=== PATIENT | female | born 1945 | race Caucasian/White ===

== ENCOUNTER 2019-02-27 17:25 | Observation (INO) ==
[2019-02-27] MEDS ORDERED: 0.9 % SODIUM CHLORIDE 1,000 ML IV ONE ×2 (17:27→17:55)
--- NOTE | 2019-02-27 17:35 | Emergency Department Note ---
Altered Mental Status HPI - General Chief Complaint: Altered Mental Status Stated Complaint: heat stroke Time Seen by Provider: 02/27/19 17:27 Source: patient Mode of arrival: ambulatory Limitations: no limitations - History of Present Illness HPI Narrative: 74-year-old female was found in her car unconscious with the windows rolled up. Her temperature was 106. EMS brought her in. She has no memory of what happened. She was stuporous and barely coherent on first exam After fluid resuscitation she was more awake alert and can answer questions but she could give me no additional information - Related Data Previous Rx's Medication Instructions Recorded cholecalciferol (vitamin D3) 50,000 unit PO .COMPLEX #24 cap 02/15/17 50,000 unit capsule metoprolol tartrate 25 mg tablet 25 mg PO BID #60 tab 09/02/17 amlodipine 10 mg tablet 10 mg PO QDAY #90 tab 01/05/19 bupropion HCl XL 150 mg 24 hr 450 mg PO QDAY #270 tab 01/05/19 tablet, extended release furosemide 20 mg tablet 10 mg PO QAM PRN #30 tab 01/05/19 lisinopril 20 1 tab PO QDAY #90 tab 01/05/19 mg-hydrochlorothiazide 25 mg tablet simvastatin 20 mg tablet 20 mg PO QPM #90 tab 01/05/19 venlafaxine ER 150 mg 150 mg PO BID #180 cap 01/05/19 capsule,extended release 24 hr Allergies Allergy/AdvReac Type Severity Reaction Status Date / Time venom-honey bee Allergy Unknown Swelling Verified 01/05/19 13:33 [bee venom (honey bee)] Review of Systems Limitations: ROS unobtainable due to patients medical condition Past Medical History - Past Medical History Source: unable to obtain Medical history: Reports: arthritis, hyperlipidemia, hypertension, other (mitral valve prolapse, cervical DDD) Psychiatric history: Reports: anxiety, depression Surgical history ED: Reports: hysterectomy - Social History smoking status: Former smoker Alcohol use: Reports: Rarely Drug use: Reports: none Physical Exam No acute distress resting. Thin. Normocephalic atraumatic. Conjunctive are clear sclerae white and anicteric. No nasal discharge or congestion. Oropharynx with dry buccal mucosa. Neck is supple without lymphadenopathy or thyromegaly. Heart is regular rate and rhythm no murmur appreciated. Lungs are clear to auscultation bilaterally without wheezes rales rhonchi or respiratory distress. Abdomen is soft nontender nondistended. No pedal edema. +2 radial pulse. Alert after fluid resuscitation but denies any memory of events preceding Limitations: no limitations Course Vital Signs Temperature 103.5 F H 02/27/19 17:25 Respiratory Rate 16 02/27/19 17:25 Blood Pressure 136/63 02/27/19 17:25 Pulse Oximetry (%) 90 02/27/19 17:25 Temperature 98.0 F 02/27/19 19:09 Pulse Rate 99 H 02/27/19 19:09 Respiratory Rate 10 L 02/27/19 19:09 Blood Pressure 106/57 02/27/19 19:01 Pulse Oximetry (%) 100 02/27/19 19:09 Altered Mental Status - Lab Data Lab results reviewed: Yes I reviewed the patient's lab results. Result diagrams: 02/27/19 17:40 02/27/19 17:40 Lab Results 02/27/19 02/27/19 02/27/19 Range/Units 17:40 17:40 17:40 WBC 6.0 (4.5-11.0) K/mcL RBC 3.55 L (4.00-5.20) M/mcL Hgb 10.7 L (12.0-15.0) g/dL Hct 32.4 L (36.0-48.0) % POC Hct 30.0 L (36.0-48.0) % MCV 91.3 (80.0-100.0) fL MCH 30.2 (26.0-34.0) pg MCHC 33.1 (31.0-36.0) g/dL RDW 13.3 (11.5-14.5) % Plt Count 281 (140-440) K/mcL MPV 8.6 (7.4-10.4) fL Gran % 71.9 (38.0-78.0) % Lymph % (Auto) 18.9 (15.5-49.0) % [place] % (Auto) 8.2 (1.0-12.0) % Eos % (Auto) 0 (0.0-7.0) % Baso % (Auto) 1.0 (0.0-2.0) % Gran # 4.3 (1.8-8.0) K/mcL Lymph # (Auto) 1.1 L (1.5-4.8) K/mcL [place] # (Auto) 0.5 (0.1-0.9) K/mcL Eos # (Auto) 0 (0.0-0.7) K/mcL Baso # (Auto) 0.1 (0.0-0.3) K/mcL POC Sodium 140 (133-145) mmol/L Sodium 140 (133-145) mmol/L POC Potassium 3.4 (3.3-5.1) mmol/L Potassium 3.6 (3.3-5.1) mmol/L POC Chloride 106 (96-108) mmol/L Chloride 103 (96-108) mmol/L Carbon Dioxide 24 (22-30) mmol/L POC Total CO2 25 (22-30) mmol/L Anion Gap 13.0 (8-16) POC BUN 19 (8-23) mg/dl BUN 17 (8-23) mg/dl Creatinine 1.4 H (0.6-1.1) mg/dl POC Creatinine 1.5 H (0.6-1.1) mg/dl GFR Calculation 37 Glucose 113 H (70-105) mg/dL POC Glucose 111 H (70-105) mg/dL Calcium 8.7 (8.6-10.4) mg/dl POC WB Ioniz Calcium 1.09 L (1.16-1.32) mmol/L Phosphorus 1.7 L (2.7-4.5) mg/dL Magnesium 1.8 (1.6-2.5) mg/dL Total Bilirubin 0.3 (0.0-1.0) mg/dL AST 29 (0-37) U/l ALT 21 (0-40) U/l Alkaline Phosphatase 63 (39-117) U/L Total Creatine Kinase 140 (24-170) IU/L Troponin T < 0.01 (0-0.03) ng/ml Total Protein 6.5 (5.9-8.4) gm/dL Albumin 4.0 (3.2-5.2) gm/dL Globulin 2.5 (2.2-3.7) gm/dL Albumin/Globulin Ratio 1.6 (1.0-2.3) Urine Color Urine Appearance Urine pH (5.0-9.0) Ur Specific [place] (1.000-1.035) Urine Protein (NEG) mg/dL Urine Glucose (UA) (NEG) mg/dL Urine Ketones (NEG) mg/dL Urine Occult Blood (<0.03) mg/dL Urine Nitrate (NEG) Urine Bilirubin (NEG) mg/dL Urine Urobilinogen (NEG) mg/dL Ur Leukocyte Esterase (NEG) /uL Urine RBC (0-1) /hpf Urine WBC (0-4) /hpf Ur Squamous Epith Cells (0-4) /hpf Ur Transition Epith Cell (0-2) /hpf Urine Bacteria (0) /hpf Hyaline Casts (0-2) /lpf Urine Mucus (0) /hpf Ur Culture Indicated? 02/27/19 Range/Units 18:00 WBC (4.5-11.0) K/mcL RBC (4.00-5.20) M/mcL Hgb (12.0-15.0) g/dL Hct (36.0-48.0) % POC Hct (36.0-48.0) % MCV (80.0-100.0) fL MCH (26.0-34.0) pg MCHC (31.0-36.0) g/dL RDW (11.5-14.5) % Plt Count (140-440) K/mcL MPV (7.4-10.4) fL Gran % (38.0-78.0) % Lymph % (Auto) (15.5-49.0) % [place] % (Auto) (1.0-12.0) % Eos % (Auto) (0.0-7.0) % Baso % (Auto) (0.0-2.0) % Gran # (1.8-8.0) K/mcL Lymph # (Auto) (1.5-4.8) K/mcL [place] # (Auto) (0.1-0.9) K/mcL Eos # (Auto) (0.0-0.7) K/mcL Baso # (Auto) (0.0-0.3) K/mcL POC Sodium (133-145) mmol/L Sodium (133-145) mmol/L POC Potassium (3.3-5.1) mmol/L Potassium (3.3-5.1) mmol/L POC Chloride (96-108) mmol/L Chloride (96-108) mmol/L Carbon Dioxide (22-30) mmol/L POC Total CO2 (22-30) mmol/L Anion Gap (8-16) POC BUN (8-23) mg/dl BUN (8-23) mg/dl Creatinine (0.6-1.1) mg/dl POC Creatinine (0.6-1.1) mg/dl GFR Calculation Glucose (70-105) mg/dL POC Glucose (70-105) mg/dL Calcium (8.6-10.4) mg/dl POC WB Ioniz Calcium (1.16-1.32) mmol/L Phosphorus (2.7-4.5) mg/dL Magnesium (1.6-2.5) mg/dL Total Bilirubin (0.0-1.0) mg/dL AST (0-37) U/l ALT (0-40) U/l Alkaline Phosphatase (39-117) U/L Total Creatine Kinase (24-170) IU/L Troponin T (0-0.03) ng/ml Total Protein (5.9-8.4) gm/dL Albumin (3.2-5.2) gm/dL Globulin (2.2-3.7) gm/dL Albumin/Globulin Ratio (1.0-2.3) Urine Color Yellow Urine Appearance Clear Urine pH 7.0 (5.0-9.0) Ur Specific [place] 1.016 (1.000-1.035) Urine Protein 30 A (NEG) mg/dL Urine Glucose (UA) Negative (NEG) mg/dL Urine Ketones Neg (NEG) mg/dL Urine Occult Blood Neg (<0.03) mg/dL Urine Nitrate Neg (NEG) Urine Bilirubin Neg (NEG) mg/dL Urine Urobilinogen Neg (NEG) mg/dL Ur Leukocyte Esterase 75 A (NEG) /uL Urine RBC 20 H (0-1) /hpf Urine WBC 4 (0-4) /hpf Ur Squamous Epith Cells 0 (0-4) /hpf Ur Transition Epith Cell < 1 (0-2) /hpf Urine Bacteria 0 (0) /hpf Hyaline Casts 2 (0-2) /lpf Urine Mucus Few (0) /hpf Ur Culture Indicated? No ABG shows a pH 7.42 PCO2 40 PO2 of 105 lactic acid is 0.7 - Radiology Data Radiology results reviewed: Yes I reviewed the patient's radiology results. CT of the head is read as negative - EKG Data EKG attestation: Yes I reviewed and interpreted this EKG. EKG results narrative: EKG shows a rate of 130 sinus tachycardia possible left atrial enlargement. I do not see evidence of ischemia Disposition Pt seen by CALL CENTER TRAINER/PA only: No Clinical Impression: Dehydration, Acute kidney injury Altered mental status Qualifiers: Altered mental status type: stupor Qualified Code(s): R40.1 - Stupor Heat exhaustion Qualifiers: Encounter type: initial encounter Qualified Code(s): T67.5XXA - Heat exhaustion, unspecified, initial encounter Summary: After initial intake reported temp [place] in place. Cool fluids are added IV. CT scan was negative as was EKG for concerning features After fluid resuscitation she improved greatly but did have no memory of events preceding. Temperature normalized Laboratory initially showed creatinine bumped up to 1.5 -continue with IV fluids I discussed the situation with Dr. Flood our hospitalist who agreed to admit the patient for further care and evaluation Disposition: Home, Self-Care Condition: Serious Referrals: Va Helton DO [Primary Care Provider] -
[2019-02-27 17:49] LABS: POC Blood Urea Nitrogen 19 mg/dl (8-23); POC CO2 25 mmol/L (22-30); POC Calcium, Ionized 1.09 mmol/L (1.16-1.32); POC Chloride 106 mmol/L (96-108); POC Creatinine 1.5 mg/dl (0.6-1.1); POC Glucose, Random 111 mg/dL (70-105); POC Potassium 3.4 mmol/L (3.3-5.1); POC Sodium 140 mmol/L (133-145)
--- NOTE | 2019-02-27 17:53 | Cat Scan Report ---
CLINICAL INFORMATION: Heat stroke COMPARISON: Previous examination dated 10/29/2009 TECHNIQUE: Axial noncontrast-enhanced images through the brain. Sagittal and coronal reformatted images FINDINGS: No acute intracranial hemorrhage. No focal intra-axial attenuation abnormality or localized mass effect. No midline shift. Brain volume is within normal limits. Brainstem and cerebellum are negative. No extra-axial count intracranial abnormality. No subdural hematoma. There is no subarachnoid hemorrhage. Basilar cisterns are normal. No calvarial fracture. No lytic lesion. IMPRESSION: Negative noncontrast enhanced brain CT scan The exam was performed using radiation dose optimization techniques including, but not limited to, automated exposure control, adjustment of the mA and/or kV according to patient size and use of iterative reconstruction technique. Interpreted and Authenticated by: Elia Parrish 02/27/19
[2019-02-27 18:18] LABS: Basophils # (Auto) 0.1 K/mcL (0.0-0.3); Eosinophils # (Auto) 0 K/mcL (0.0-0.7); Eosinophils % (Auto) 0 % (0.0-7.0); Granulocytes % (Auto) 71.9 % (38.0-78.0); Hematocrit 32.4 % (36.0-48.0); Hemoglobin 10.7 g/dL (12.0-15.0); Lymphocytes # (Auto) 1.1 K/mcL (1.5-4.8); Lymphocytes % (Auto) 18.9 % (15.5-49.0); Mean Cell Volume 91.3 fL (80.0-100.0); Mean Corpuscular HGB Conc 33.1 g/dL (31.0-36.0); Mean Platelet Volume 8.6 fL (7.4-10.4); Monocytes # (Auto) 0.5 K/mcL (0.1-0.9); Monocytes % (Auto) 8.2 % (1.0-12.0); Platelet Count 281 K/mcL (140-440); RBC 3.55 M/mcL (4.00-5.20); Red Cell Distribution Width 13.3 % (11.5-14.5)
[2019-02-27 18:40] LABS: ALT/SGPT 21 U/l (0-40); AST/SGOT 29 U/l (0-37); Albumin/Globulin Ratio 1.6 (1.0-2.3); Alkaline Phosphatase 63 U/L (39-117); Bilirubin,Total 0.3 mg/dL (0.0-1.0); Blood Urea Nitrogen 17 mg/dl (8-23); Calcium 8.7 mg/dl (8.6-10.4); Carbon Dioxide 24 mmol/L (22-30); Chloride 103 mmol/L (96-108); Creatine Kinase 140 IU/L (24-170); Globulin 2.5 gm/dL (2.2-3.7); Glomerular Filtration Rate 37; Glucose 113 mg/dL (70-105); Magnesium 1.8 mg/dL (1.6-2.5); Phosphorous 1.7 mg/dL (2.7-4.5); Potassium 3.6 mmol/L (3.3-5.1); Sodium 140 mmol/L (133-145)
[2019-02-27 18:46] LABS: Appearance,Urine CLEAR; Bacteria,Urine 0 /hpf (0); Bilirubin,Urine NEG (NEG); Color,Urine YELLOW; Culture Indicated,Urine NO; Glucose,Urine (UA) NEGATIVE (NEG); Ketones,Urine NEG (NEG); Leukocyte Esterase,Urine 75 /uL (NEG); Mucus,Urine FEW /hpf (0); Nitrate,Urine NEG (NEG); Protein,Urine 30 mg/dL (NEG); Specific Gravity,Urine 1.016 (1.000-1.035); Urine Blood NEG mg/dL (<0.03); Urine Hyaline Cast 2 /lpf (0-2); Urine RBC 20 /hpf (0-1); Urine Squamous Epithelial Cell 0 /hpf (0-4); Urine Transitional Epi Cells < 1 /hpf (0-2); Urine WBC 4 /hpf (0-4); Urobilinogen,Urine NEG (NEG)
--- NOTE | 2019-02-27 20:07 | Internal Med History&Physical ---
Medical - H&P: HPI Patient information: Note initiated : 02/27/19 at 8:04 pm Service Date, if different from initiated Date: [] Patient: Alyson Mortensen a 74 y/o F admitted on for heat stroke. Chief Complaint: [] History of present illness: Ms. Mortensen is a 74 year old F with h/o depression, well controlled, lives in [place], presents to the ER after being brought to the ER by EMS for AMS The patient was noted in her car at a parking lot unconscious, or at least profoundly confused. Temperature was 106 and she was brought to the emergency room for further evaluation. Patient in the emergency room is confused she is unable to provide any meaningful history daughter she recollect events from today. On my evaluation she said today is Saturday, 28 February, and she remembers going to the eyeglass cutter on Saturday the . Today is Saturday the . She notes that she saw the eyeglass cutter in the afternoon and probably went home but she is not sure. She only remembers coming into the hospital. Mental status is clearing up but not back to her baseline. She denies any acute complaints no headaches no changes in vision no difficulty in swallowing no chest pain cough no shortness of breath no nausea no vomiting no abdominal pain no problems like diarrhea or burning micturition. Does not report any new joint pains or skin rashes. Or bleeding from any site. The patient denies any history of drug use or smoking, denies any history of seizures. She does not remember passing out any time in the past. The patient was treated with IV fluids, rapidly cooled, temperature at the time of admission was 19 degrees. Patient is hemodynamically stable she has been admitted to the hospital for observation Labs in the ER showed WBC count of 6 hemoglobin 10.7 platelets 281 sodium 140 potassium 3.6 bicarbonate 24 creatinine 1.4 was 1.2 previously glucose 113 troponin is negative CK is 140 UA is positive for leukocyte Estrace All systems: reviewed and no additional remarkable complaints except as stated (As per HPI rest negative) Medical - H&P: PMH Medical history: Medical History (Last Reviewed 01/05/19 @ 13:39 by Va Helton DO) Vitamin D deficiency (Chronic) Constipation (Chronic) Closed traumatic displaced Colles' fracture of left radius (Acute) Colles' fracture of right radius (Acute) Unintentional weight loss (Acute) Encounter for wellness examination (Chronic) Severe depression (Chronic) Osteopenia (Chronic) Prediabetes (Chronic 05/12/14) Mitral valve prolapse (Chronic) Hypertension, essential (Chronic 04/27/14) Hyperlipemia (Chronic) Depressive disorder (Chronic) Degenerative disc disease, cervical (Chronic) Colon polyp (Chronic 07/12/14) Chondrocalcinosis of knee (Chronic) Arthritis (Chronic) Anxiety disorder (Chronic) Candidiasis (Inactive) Cellulitis and abscess (Inactive) History of hysterectomy (Inactive) Knee pain (Inactive 04/27/14) Palpitations (Inactive 04/27/14) Spinal stenosis of lumbar region with neurogenic claudication (Inactive 10/20/14) Stomach ulcer (Inactive) Surgical history: Past Surgical History (Last Reviewed 01/05/19 @ 13:39 by Va Helton DO) History of colonoscopy (Inactive 07/02/14) History of laminectomy (Inactive) Pertinent family history: Family History (Last Reviewed 01/05/19 @ 13:39 by Va Helton DO) Father Family history of arthritis Mother Family history of arthritis Essential hypertension Sister Family history of arthritis Medical - H&P: Meds Home Medications Medication Instructions Recorded Confirmed Type cholecalciferol (vitamin D3) 50,000 unit PO .COMPLEX #24 cap 02/15/17 01/05/19 Rx 50,000 unit capsule metoprolol tartrate 25 mg tablet 25 mg PO BID #60 tab 09/02/17 01/05/19 Rx amlodipine 10 mg tablet 10 mg PO QDAY #90 tab 01/05/19 01/05/19 Rx bupropion HCl XL 150 mg 24 hr 450 mg PO QDAY #270 tab 01/05/19 01/05/19 Rx tablet, extended release furosemide 20 mg tablet 10 mg PO QAM PRN #30 tab 01/05/19 01/05/19 Rx lisinopril 20 1 tab PO QDAY #90 tab 01/05/19 01/05/19 Rx mg-hydrochlorothiazide 25 mg tablet simvastatin 20 mg tablet 20 mg PO QPM #90 tab 01/05/19 01/05/19 Rx venlafaxine ER 150 mg 150 mg PO BID #180 cap 01/05/19 01/05/19 Rx capsule,extended release 24 hr Allergies Allergy/AdvReac Type Severity Reaction Status Date / Time venom-honey bee Allergy Unknown Swelling Verified 01/05/19 13:33 [bee venom (honey bee)] Medical - H&P: Exam - Constitutional Vitals: Temp Pulse Resp BP Pulse Ox 98.1 F 101 H 23 H 102/54 100 02/27/19 19:46 02/27/19 19:46 02/27/19 19:31 02/27/19 19:46 02/27/19 19:46 Exam: GENERAL: The patient is a thinly developed, in no apparent distress. Is alert and oriented x2. VITAL SIGNS: Reviewed and as noted elsewhere. HEENT: Head is normocephalic and atraumatic. Extraocular muscles are intact. Pupils are equal, round, and reactive to light. Nares appeared normal. Mouth appears any without lesions. Mucous membranes are dry. NECK: Normal to inspection, Supple, No lymphadenopathy or thyromegaly. LUNGS: Air entry equal on both sides, no wheezing, crackles or rhonchi noted. No accessory muscles of respiration HEART: Regular rate and rhythm normal, S1 and S2 heard, no Gallop, S3 or Rub Noted, No Gross murmur heard. ABDOMEN: Soft, nontender, and nondistended. Positive bowel sounds. No hepatosplenomegaly was noted. EXTREMITIES: No cyanosis, clubbing, rash, lesions or edema. some erthema on left knee, thigh, bruising mild NEUROLOGIC: Cranial nerves II through XII are grossly intact. Motor and Sensory System Grossly Intact PSYCHIATRIC: confused SKIN: No ulceration or wounds noted, No jaundice, No rash noted. Medical - H&P: Reslt - Labs CBC & Chem 7: 02/27/19 17:40 02/27/19 17:40 Labs: Short CBC 02/27/19 Range/Units 17:40 WBC 6.0 (4.5-11.0) K/mcL Hgb 10.7 L (12.0-15.0) g/dL Hct 32.4 L (36.0-48.0) % Plt Count 281 (140-440) K/mcL BMP 02/27/19 17:40 Sodium 140 Potassium 3.6 Chloride 103 Carbon Dioxide 24 BUN 17 Creatinine 1.4 H Glucose 113 H Calcium 8.7 Cardiac Enzymes 02/27/19 02/27/19 Range/Units 17:40 17:40 Total Creatine Kinase 140 (24-170) IU/L Troponin T < 0.01 (0-0.03) ng/ml Liver Function 02/27/19 Range/Units 17:40 Total Bilirubin 0.3 (0.0-1.0) mg/dL AST 29 (0-37) U/l ALT 21 (0-40) U/l Alkaline Phosphatase 63 (39-117) U/L Albumin 4.0 (3.2-5.2) gm/dL Urine 02/27/19 Range/Units 18:00 Urine Color Yellow Urine Appearance Clear Urine pH 7.0 (5.0-9.0) Ur Specific [place] 1.016 (1.000-1.035) Urine Protein 30 A (NEG) mg/dL Urine Glucose (UA) Negative (NEG) mg/dL Medical - H&P: A/P - Narrative A/P Narrative: A/P Hyperthermia -due to in a car in heat with windows rolled up, heat exhaustion/ heat stroke -electrolytes stable -pt temp back to normal -monitor Syncope/AMS -Head CT neg -Check UDS -MR head in AM -monitor on tele, get echo -check prolactin, no e/o lip injury bowel or bladder incontinence to indicate seizure Depression -stable as per notes -continue home meds once resumed DVT hep sq Diet regular Full code Social History - Social History marital status: other: 3 children - Tobacco smoking status: Former smoker - Quit Details quit date: 12/12/14 pack-years: 20 - Alcohol alcohol intake frequency: does not drink - Substance use substance use type: does not use
[2019-02-27] MEDS ORDERED: ONDANSETRON 4 MG/2 ML VIAL IV PRN (20:19)
[2019-02-27] MEDS ORDERED: NALOXONE HCL 0.4 MG/ML VIAL IV PRN (20:19)
[2019-02-27] MEDS ORDERED: ACETAMINOPHEN 325 MG TABLET PO PRN (20:19)
[2019-02-27] MEDS ORDERED: cefTRIAXone 1 GM VIAL IV SCH (20:19)
[2019-02-27] MEDS: 0.9 % SODIUM CHLORIDE 1,000 ML IV SCH (20:32)
[2019-02-27] MEDS ORDERED: cefTRIAXone 1 GM VIAL ONE (20:41)
[2019-02-27] MEDS ORDERED: HEPARIN 5,000 UNIT/ML VIAL ONE (20:41)
[2019-02-27 20:49] LABS: Prolactin 58.6 ng/ml (4.8-23.3); Thyroid Stimulating Hormone 2.14 uIU/ml (0.27-5.01)
[2019-02-27 20:50] LABS: Alcohol, Urine NONE DETECTED (NONDETECTED)
[2019-02-27] MEDS: 0.9 % SODIUM CHLORIDE 10 ML SYRINGE IV SCH (20:57)
[2019-02-27] MEDS: HEPARIN 5,000 UNIT/ML VIAL SQ SCH (20:57)
[2019-02-27 21:07] LABS: Amphetamine Screen,Urine NONE DETECTED (NONDETECTED); Barbiturate Screen,Urine NONE DETECTED (NONDETECTED); Benzodiazepines Screen,Urine NONE DETECTED (NONDETECTED); Cannabinoid Screen,Urine NONE DETECTED (NONDETECTED); Cocaine Screen,Urine NONE DETECTED (NONDETECTED); Opiate Screen,Urine NONE DETECTED (NONDETECTED); Oxycodone, Urine Screen NONE DETECTED (NONDETECTED); Phencyclidine Screen,Urine NONE DETECTED (NONDETECTED)
[2019-02-28] MEDS: 0.9 % SODIUM CHLORIDE 1,000 ML IV SCH ×2 (03:08→11:12)
[2019-02-28] MEDS: 0.9 % SODIUM CHLORIDE 10 ML SYRINGE IV SCH (05:11)
[2019-02-28 05:31] LABS: Basophils # (Auto) 0 K/mcL (0.0-0.3); Basophils % (Auto) 0.3 % (0.0-2.0); Eosinophils # (Auto) 0 K/mcL (0.0-0.7); Eosinophils % (Auto) 0 % (0.0-7.0); Granulocytes % (Auto) 73.2 % (38.0-78.0); Hematocrit 32.3 % (36.0-48.0); Hemoglobin 10.9 g/dL (12.0-15.0); Lymphocytes # (Auto) 1.4 K/mcL (1.5-4.8); Lymphocytes % (Auto) 14.2 % (15.5-49.0); Mean Cell Volume 92.7 fL (80.0-100.0); Mean Corpuscular HGB Conc 33.7 g/dL (31.0-36.0); Mean Platelet Volume 8.6 fL (7.4-10.4); Monocytes # (Auto) 1.2 K/mcL (0.1-0.9); Monocytes % (Auto) 12.3 % (1.0-12.0); Platelet Count 258 K/mcL (140-440); RBC 3.49 M/mcL (4.00-5.20); Red Cell Distribution Width 13.1 % (11.5-14.5)
[2019-02-28 05:56] LABS: ALT/SGPT 30 U/l (0-40); AST/SGOT 58 U/l (0-37); Albumin 3.5 gm/dL (3.2-5.2); Albumin/Globulin Ratio 1.5 (1.0-2.3); Alkaline Phosphatase 58 U/L (39-117); Bilirubin,Direct < 0.2 mg/dL (0.0-0.3); Bilirubin,Total 0.3 mg/dL (0.0-1.0); Blood Urea Nitrogen 15 mg/dl (8-23); Carbon Dioxide 23 mmol/L (22-30); Chloride 106 mmol/L (96-108); Globulin 2.3 gm/dL (2.2-3.7); Glomerular Filtration Rate 55; Glucose 61 mg/dL (70-105); Lactate Dehydrogenase 238 U/L (94-250); Magnesium 1.8 mg/dL (1.6-2.5); Phosphorous 2.5 mg/dL (2.7-4.5); Potassium 3.2 mmol/L (3.3-5.1); Sodium 142 mmol/L (133-145); Triglycerides 32 mg/dl (<150); Uric Acid 5.8 mg/dL (2.5-8.0)
[2019-02-28] MEDS ORDERED: POTASSIUM CHLORIDE 20 MEQ PACKET PO ONE (07:56)
[2019-02-28] MEDS ORDERED: cefTRIAXone 1 GM VIAL IV SCH (09:00)
[2019-02-28] MEDS: HEPARIN 5,000 UNIT/ML VIAL SQ SCH (11:07)
--- NOTE | 2019-02-28 12:04 | Discharge Summary ---
Medical - DS: Prov Patient information: Note initiated : 02/28/19 at 12:01 pm Service Date, if different from initiated Date: [] Patient: Alyson Mortensen 74 y/o F admitted on 02/27/19 for heat stroke. Chief Complaint: [] Date of admission: 02/27/19 20:11 Discharge date: 02/28/19 Primary care physician: Va Helton DO Discharging clinician: Louise Flood Medical - DS: Meds - Discharge Medications Prescriptions: Cefuroxime [Ceftin] 250 mg PO Q12 #6 tab Active and Home Medications: Home Medications amlodipine 10 mg tablet 10 mg PO QDAY #90 tab 01/05/19 [Rx Confirmed 02/28/19 Last Taken Unknown] bupropion HCl XL 150 mg 24 hr tablet, extended release 450 mg PO QDAY #270 tab 01/05/19 [Rx Confirmed 02/28/19 Last Taken Unknown] furosemide 20 mg tablet 10 mg PO QAM PRN #30 tab 01/05/19 [Rx Confirmed 02/28/19 Last Taken Unknown] lisinopril 20 mg-hydrochlorothiazide 25 mg tablet 1 tab PO QDAY #90 tab 01/05/19 [Rx Confirmed 02/28/19 Last Taken Unknown] simvastatin 20 mg tablet 20 mg PO QPM #90 tab 01/05/19 [Rx Confirmed 02/28/19 Last Taken Unknown] venlafaxine ER 150 mg capsule,extended release 24 hr 150 mg PO BID #180 cap 01/05/19 [Rx Confirmed 02/28/19 Last Taken Unknown] Medical - DS: Hosp Hospital course: Ms. Mortensen is a 74 year old F with h/o depression, well controlled, lives in [place], presents to the ER after being brought to the ER by EMS for AMS The patient was noted in her car at a parking lot unconscious, or at least profoundly confused. Temperature was 106 and she was brought to the emergency room for further evaluation. Patient in the emergency room is confused she is unable to provide any meaningful history daughter she recollect events from today. On my evaluation she said today is Saturday, 28 February, and she remembers going to the dairy nutrition specialist on Saturday the . Today is Saturday the fifth. She notes that she saw the dairy nutrition specialist in the afternoon and probably went home but she is not sure. She only remembers coming into the hospital. Mental status is clearing up but not back to her baseline. She denies any acute complaints no headaches no changes in vision no difficulty in swallowing no chest pain cough no shortness of breath no nausea no vomiting no abdominal pain no problems like diarrhea or burning micturition. Does not report any new joint pains or skin rashes. Or bleeding from any site. The patient denies any history of drug use or smoking, denies any history of seizures. She does not remember passing out any time in the past. The patient was treated with IV fluids, rapidly cooled, temperature at the time of admission was 19 degrees. Patient is hemodynamically stable she has been admitted to the hospital for observation Labs in the ER showed WBC count of 6 hemoglobin 10.7 platelets 281 sodium 140 potassium 3.6 bicarbonate 24 creatinine 1.4 was 1.2 previously glucose 113 troponin is negative CK is 140 UA is positive for leukocyte Estrace Patient monitored overnight on telemetry. No events on telemetry noted. Patient has remained afebrile since the time of admission mental status is back to baseline. She remembers the fact that I was a primary care provider a few years ago. The patient has no complaints or concerns at this time she still does not remember exactly what happened and where her car is. Prolactin level is elevated however this could be either from the antidepressant she is taking she may have had a seizure there is no obvious evidence of a seizure at this time, I am not starting her on any medications but she will benefit from an outpatient MRI. She had an echocardiogram done results of which are pending, I do not see any obvious pathology and LV function appeared normal. The patient is advised not to drive for now, advised to follow-up with the PCP in 1 week, stay well-hydrated, she is also being discharged on oral cefuroxime for 3 days for possible UTI Discharge diagnosis: UTI, Heat Exhaustion - Time Spent with Patient Total time spent providing and/or coordinating discharge services: Greater than 30 minutes Medical - DS: Exam - Constitutional Vitals: Vital Signs Temp Pulse Pulse Resp BP BP Pulse Ox 02/28/19 08:00 100 02/28/19 07:40 98.1 F 77 18 114/68 100 02/28/19 04:00 98.1 F 78 18 105/54 98 02/28/19 00:00 98.5 F 78 18 110/79 98 02/27/19 20:19 98.4 F 90 16 107/47 99 02/27/19 19:46 98.1 F 101 H 102/54 100 02/27/19 19:31 98.1 F 100 H 23 H 99/60 100 02/27/19 19:16 98.0 F 102 H 18 93/74 100 02/27/19 19:09 98.0 F 99 H 10 L 100 02/27/19 19:06 98.0 F 101 H 20 100 02/27/19 19:01 98.1 F 96 H 15 106/57 100 02/27/19 18:53 98.0 F 94 H 18 100 02/27/19 18:49 98.0 F 98 H 15 100 02/27/19 18:46 98.0 F 95 H 15 123/77 100 02/27/19 18:39 98.1 F 95 H 15 100 02/27/19 18:31 98.2 F 16 121/65 02/27/19 18:30 98.2 F 94 H 17 99 02/27/19 18:22 98.5 F 97 H 17 99 02/27/19 18:16 98.6 F 102 H 19 129/74 99 02/27/19 18:15 98.7 F 98 H 17 99 02/27/19 18:09 99.1 F H 97 H 17 95 02/27/19 18:04 99.9 F H 102 H 19 125/73 95 02/27/19 18:01 100.2 F H 106 H 18 125/73 95 02/27/19 17:59 100.5 F H 110 H 31 H 126/59 99 02/27/19 17:25 103.5 F H 16 136/63 90 Intake and Output 02/27/19 02/28/19 02/28/19 21:59 05:59 13:59 Intake Total 990 1420 Output Total 1650 1150 Balance -660 270 Intake: IV 990 1000 Sodium Chloride 0.9% 1,000 ml @ 990 1000 150 mls/hr IV .[id number] [facility] Rx#: [id number] Oral 420 Output: Urine Catheter Amount 1650 1150 Other: Urine Appearance Uretheral (Pedroza) Clear Clear Urine Color Uretheral (Ped[place]) Dark Yellow Pale Weight 97 lb 8 oz Additional comments: Constitutional; Afebrile, cooperative, alert, not in distress. Eyes- No icterus, , No periorbital swelling Ears- Ext ear normal, hearing normal to conversation. Neck- Midline trachea, supple Respiratory system: Air Entry equal on both sides, No crackles or wheezing, no rhonchi. CVS- Rate rhythm regular, S1,S2 heard, no gallop, no rub. Abdomen- Soft nontender abdomen, no organomegaly, no tenderness, no guarding or rigidity, [employer]- AOOx3, moving all extremities, no gross focal deficit noted. Medical - DS: Data Labs on day of discharge: Labs from last 24 hours 02/28/19 02/28/19 02/27/19 03:45 03:45 18:00 WBC 10.0 RBC 3.49 L Hgb 10.9 L Hct 32.3 L POC Hct MCV 92.7 MCH 31.2 MCHC 33.7 RDW 13.1 Plt Count 258 MPV 8.6 Gran % 73.2 Lymph % (Auto) 14.2 L [place] % (Auto) 12.3 H Eos % (Auto) 0 Baso % (Auto) 0.3 Gran # 7.3 Lymph # (Auto) 1.4 L [place] # (Auto) 1.2 H Eos # (Auto) 0 Baso # (Auto) 0 POC Sodium Sodium 142 POC Potassium Potassium 3.2 L POC Chloride Chloride 106 Carbon Dioxide 23 POC Total CO2 Anion Gap 13.0 POC BUN BUN 15 Creatinine 1.0 POC Creatinine GFR Calculation 55 Glucose 61 L POC Glucose Uric Acid 5.8 Calcium 8.0 L POC WB Ioniz Calcium Phosphorus 2.5 L Magnesium 1.8 Total Bilirubin 0.3 Direct Bilirubin < 0.2 GGT 24 AST 58 H ALT 30 Alkaline Phosphatase 58 Lactate Dehydrogenase 238 Total Creatine Kinase Troponin T Total Protein 5.8 L Albumin 3.5 Globulin 2.3 Albumin/Globulin Ratio 1.5 Triglycerides 32 TSH Prolactin Urine Color Urine Appearance Urine pH Ur Specific [place] Urine Protein Urine Glucose (UA) Urine Ketones Urine Occult Blood Urine Nitrate Urine Bilirubin Urine Urobilinogen Ur Leukocyte Esterase Urine RBC Urine WBC Ur Squamous Epith Cells Ur Transition Epith Cell Urine Bacteria Hyaline Casts Urine Mucus Ur Culture Indicated? Urine Opiates Screen None detected Ur Opiates Confirm Not Reportable Ur Oxycodone Screen None detected Urine Methadone Screen None detected Ur Methadone Confirm Not Reportable Ur Barbiturates Screen None detected Ur Barbiturate Confirm Not Reportable Ur Phencyclidine Scrn None detected Urine PCP Confirm Not Reportable Ur Amphetamines Screen None detected U Benzodiazepines Scrn None detected U Benzodiazepine Confm Not Reportable Urine Cocaine Screen None detected Urine Cocaine Confirm Not Reportable U Cannabinoids Confirm Not Reportable U Marijuana (THC) Screen None detected Urine Alcohol None detected 02/27/19 02/27/19 02/27/19 18:00 17:40 17:40 WBC RBC Hgb Hct POC Hct MCV MCH MCHC RDW Plt Count MPV Gran % Lymph % (Auto) [place] % (Auto) Eos % (Auto) Baso % (Auto) Gran # Lymph # (Auto) [place] # (Auto) Eos # (Auto) Baso # (Auto) POC Sodium Sodium POC Potassium Potassium POC Chloride Chloride Carbon Dioxide POC Total CO2 Anion Gap POC BUN BUN Creatinine POC Creatinine GFR Calculation Glucose POC Glucose Uric Acid Calcium POC WB Ioniz Calcium Phosphorus Magnesium Total Bilirubin Direct Bilirubin GGT AST ALT Alkaline Phosphatase Lactate Dehydrogenase Total Creatine Kinase Troponin T < 0.01 Total Protein Albumin Globulin Albumin/Globulin Ratio Triglycerides TSH 2.14 Prolactin 58.6 H Urine Color Yellow Urine Appearance Clear Urine pH 7.0 Ur Specific [place] 1.016 Urine Protein 30 A Urine Glucose (UA) Negative Urine Ketones Neg Urine Occult Blood Neg Urine Nitrate Neg Urine Bilirubin Neg Urine Urobilinogen Neg Ur Leukocyte Esterase 75 A Urine RBC 20 H Urine WBC 4 Ur Squamous Epith Cells 0 Ur Transition Epith Cell < 1 Urine Bacteria 0 Hyaline Casts 2 Urine Mucus Few Ur Culture Indicated? No Urine Opiates Screen Ur Opiates Confirm Ur Oxycodone Screen Urine Methadone Screen Ur Methadone Confirm Ur Barbiturates Screen Ur Barbiturate Confirm Ur Phencyclidine Scrn Urine PCP Confirm Ur Amphetamines Screen U Benzodiazepines Scrn U Benzodiazepine Confm Urine Cocaine Screen Urine Cocaine Confirm U Cannabinoids Confirm U Marijuana (THC) Screen Urine Alcohol 02/27/19 02/27/19 17:40 17:40 WBC 6.0 RBC 3.55 L Hgb 10.7 L Hct 32.4 L POC Hct 30.0 L MCV 91.3 MCH 30.2 MCHC 33.1 RDW 13.3 Plt Count 281 MPV 8.6 Gran % 71.9 Lymph % (Auto) 18.9 [place] % (Auto) 8.2 Eos % (Auto) 0 Baso % (Auto) 1.0 Gran # 4.3 Lymph # (Auto) 1.1 L [place] # (Auto) 0.5 Eos # (Auto) 0 Baso # (Auto) 0.1 POC Sodium 140 Sodium 140 POC Potassium 3.4 Potassium 3.6 POC Chloride 106 Chloride 103 Carbon Dioxide 24 POC Total CO2 25 Anion Gap 13.0 POC BUN 19 BUN 17 Creatinine 1.4 H POC Creatinine 1.5 H GFR Calculation 37 Glucose 113 H POC Glucose 111 H Uric Acid Calcium 8.7 POC WB Ioniz Calcium 1.09 L Phosphorus 1.7 L Magnesium 1.8 Total Bilirubin 0.3 Direct Bilirubin GGT AST 29 ALT 21 Alkaline Phosphatase 63 Lactate Dehydrogenase Total Creatine Kinase 140 Troponin T Total Protein 6.5 Albumin 4.0 Globulin 2.5 Albumin/Globulin Ratio 1.6 Triglycerides TSH Prolactin Urine Color Urine Appearance Urine pH Ur Specific [place] Urine Protein Urine Glucose (UA) Urine Ketones Urine Occult Blood Urine Nitrate Urine Bilirubin Urine Urobilinogen Ur Leukocyte Esterase Urine RBC Urine WBC Ur Squamous Epith Cells Ur Transition Epith Cell Urine Bacteria Hyaline Casts Urine Mucus Ur Culture Indicated? Urine Opiates Screen Ur Opiates Confirm Ur Oxycodone Screen Urine Methadone Screen Ur Methadone Confirm Ur Barbiturates Screen Ur Barbiturate Confirm Ur Phencyclidine Scrn Urine PCP Confirm Ur Amphetamines Screen U Benzodiazepines Scrn U Benzodiazepine Confm Urine Cocaine Screen Urine Cocaine Confirm U Cannabinoids Confirm U Marijuana (THC) Screen Urine Alcohol Medical - DS: A/P - Patient/Caregiver Discharge Instructions Activity: increase activity as tolerated Diet: Regular Diet Additional Instructions: Please take cefuroxime 1 tablet twice a day for 3 days Keep yourself well-hydrated and stay away from the heat Do not drive until you are cleared by a primary care provider for safety Follow-up with your PCP in 1 week Make sure your PCP reviews the results of your echocardiogram, and offers an MRI of the head to further evaluate if there was any other possible cause for you passing out in the car. It is very likely that you just passed out from heat exhaustion, but it would be victoria to get an MRI to rule out any other potential causes. I have made no changes to your chronic home medication list, please take them as prescribed by her regular provider - Follow up Plan Follow up with: Va Helton DO [Primary Care Provider] - Disposition: Home, Self-Care Prognosis: Fair Rehab Potential: Fair I certify that the patient requires SNF services: No Overall status at discharge: patient is progressing back to baseline
== END 2019-02-28 14:20 | disposition home or self-care (01) ==
LOC: ED 17:25 → ICU 17:25
PROVIDERS: ADMIT Internal Medicine; ATTEND Internal Medicine

== ENCOUNTER 2019-03-20 18:54 | Observation (INO) ==
[2019-03-20] MEDS ORDERED: 0.9 % SODIUM CHLORIDE 2,000 ML IV ONE (19:16)
--- NOTE | 2019-03-20 19:21 | Emergency Department Note ---
Weakness HPI - General Chief complaint: Weakness Stated complaint: weakness Time Seen by Provider: 03/20/19 19:16 Source: patient Mode of arrival: ambulatory Limitations: no limitations - History of Present Illness HPI Narrative: 74-year-old female comes in via EMS after being found unresponsive in her car. This is her third episode of the same type in the last month or so. The first time I saw her she had a temperature of 106 and was diagnosed with heat exhaustion. She had a heat exhaustion the second time too-she was found in her car at [facility]. This time she again has a temperature of up to 101.3 on the ear thermometer. She does not remember the second episode but was aware with the first and this time. She was found in her car in her friend's driveway. She is already feeling better since being retrieved by the polymerization supervisor-she wants to go home already but she is agreeable with being checked out first - Related Data Previous Rx's Medication Instructions Recorded amlodipine 10 mg tablet 10 mg PO QDAY #90 tab 01/05/19 bupropion HCl XL 150 mg 24 hr 450 mg PO QDAY #270 tab 01/05/19 tablet, extended release furosemide 20 mg tablet 10 mg PO QAM PRN #30 tab 01/05/19 lisinopril 20 1 tab PO QDAY #90 tab 01/05/19 mg-hydrochlorothiazide 25 mg tablet simvastatin 20 mg tablet 20 mg PO QPM #90 tab 01/05/19 venlafaxine ER 150 mg 150 mg PO BID #180 cap 01/05/19 capsule,extended release 24 hr Cefuroxime [Ceftin] 250 mg PO Q12 #6 tab 02/28/19 Allergies Allergy/AdvReac Type Severity Reaction Status Date / Time venom-honey bee Allergy Unknown Swelling Verified 01/05/19 13:33 [bee venom (honey bee)] Review of Systems All systems ED: reviewed and negative except as stated. Past Medical History - Past Medical History Attestation: Yes: The following information was validated with the patient. Medical history: Reports: arthritis, hyperlipidemia, hypertension, other (mitral valve prolapse, cervical DDD) Psychiatric history: Reports: anxiety, depression Surgical history ED: Reports: hysterectomy - Social History smoking status: Former smoker Alcohol use: Reports: Rarely Drug use: Reports: none Physical Exam Thin female no acute distress. resting comfortably able to answer questions appropriately. Normocephalic atraumatic. Conjunctive are clear sclerae white and icteric. Extraocular movements are intact without nystagmus. Pupils are equal reactive as well. Face is symmetrical. No nasal discharge or congestion. Oropharynx with dry buccal mucosa. Posterior pharynx is clear. Neck is supple without lymphadenopathy thyromegaly or carotid bruit. Heart is regular rate and rhythm no murmur appreciated. Lungs are clear to auscultation bilaterally without wheezes rales rhonchi or respiratory distress. Abdomen is soft nontender nondistended. No pedal edema. +2 radial pulse. Alert oriented-does remember sleeping in her car but does not recall all of the events surrounding coming Limitations: no limitations Course Vital Signs Temperature 98.9 F 03/20/19 18:56 Pulse Rate 85 03/20/19 18:56 Respiratory Rate 18 03/20/19 18:56 Blood Pressure 102/44 03/20/19 18:56 Pulse Oximetry (%) 100 03/20/19 18:56 Temperature 98.9 F 03/20/19 18:56 Pulse Rate 81 03/20/19 21:46 Respiratory Rate 13 03/20/19 21:46 Blood Pressure 111/59 03/20/19 21:46 Pulse Oximetry (%) 100 03/20/19 21:46 Weakness - Lab Data Lab results reviewed: Yes I reviewed the patient's lab results. Result diagrams: 03/20/19 19:27 03/20/19 19:27 Lab Results 03/20/19 03/20/19 03/20/19 Range/Units 19:27 19:27 19:27 WBC 5.4 (4.5-11.0) K/mcL RBC 3.63 L (4.00-5.20) M/mcL Hgb 11.1 L (12.0-15.0) g/dL Hct 33.4 L (36.0-48.0) % POC Hct 33.0 L (36.0-48.0) % MCV 92.1 (80.0-100.0) fL MCH 30.6 (26.0-34.0) pg MCHC 33.2 (31.0-36.0) g/dL RDW 13.4 (11.5-14.5) % Plt Count 280 (140-440) K/mcL MPV 8.2 (7.4-10.4) fL Gran % 72.2 (38.0-78.0) % Lymph % (Auto) 17.0 (15.5-49.0) % [place] % (Auto) 9.7 (1.0-12.0) % Eos % (Auto) 0 (0.0-7.0) % Baso % (Auto) 1.1 (0.0-2.0) % Gran # 3.9 (1.8-8.0) K/mcL Lymph # (Auto) 0.9 L (1.5-4.8) K/mcL [place] # (Auto) 0.5 (0.1-0.9) K/mcL Eos # (Auto) 0 (0.0-0.7) K/mcL Baso # (Auto) 0.1 (0.0-0.3) K/mcL VBG Lactic Acid 0.7 (0.5-2.0) mmol/L POC Sodium 142 (133-145) mmol/L Sodium 138 (133-145) mmol/L POC Potassium 3.0 L (3.3-5.1) mmol/L Potassium 3.2 L (3.3-5.1) mmol/L POC Chloride 102 (96-108) mmol/L Chloride 100 (96-108) mmol/L Carbon Dioxide 25 (22-30) mmol/L POC Total CO2 25 (22-30) mmol/L Anion Gap 13.0 (8-16) POC BUN 32 H (8-23) mg/dl BUN 33 H (8-23) mg/dl Creatinine 1.8 H (0.6-1.1) mg/dl POC Creatinine 2.0 H (0.6-1.1) mg/dl GFR Calculation 27 Glucose 86 (70-105) mg/dL POC Glucose 86 (70-105) mg/dL Calcium 9.0 (8.6-10.4) mg/dl POC WB Ioniz Calcium 1.13 L (1.16-1.32) mmol/L Magnesium 1.9 (1.6-2.5) mg/dL Total Bilirubin 0.3 (0.0-1.0) mg/dL AST 26 (0-37) U/l ALT 17 (0-40) U/l Alkaline Phosphatase 54 (39-117) U/L Total Creatine Kinase (24-170) IU/L Troponin T (0-0.03) ng/ml Total Protein 6.5 (5.9-8.4) gm/dL Albumin 4.0 (3.2-5.2) gm/dL Globulin 2.5 (2.2-3.7) gm/dL Albumin/Globulin Ratio 1.6 (1.0-2.3) Urine Color Urine Appearance Urine pH (5.0-9.0) Ur Specific [place] (1.000-1.035) Urine Protein (NEG) mg/dL Urine Glucose (UA) (NEG) mg/dL Urine Ketones (NEG) mg/dL Urine Occult Blood (<0.03) mg/dL Urine Nitrate (NEG) Urine Bilirubin (NEG) mg/dL Urine Urobilinogen (NEG) mg/dL Ur Leukocyte Esterase (NEG) /uL Urine RBC (0-1) /hpf Urine WBC (0-4) /hpf Ur Squamous Epith Cells (0-4) /hpf Urine Bacteria (0) /hpf Hyaline Casts (0-2) /lpf Urine Mucus (0) /hpf Ur Culture Indicated? 03/20/19 03/20/19 03/20/19 Range/Units 19:27 19:27 20:00 WBC (4.5-11.0) K/mcL RBC (4.00-5.20) M/mcL Hgb (12.0-15.0) g/dL Hct (36.0-48.0) % POC Hct (36.0-48.0) % MCV (80.0-100.0) fL MCH (26.0-34.0) pg MCHC (31.0-36.0) g/dL RDW (11.5-14.5) % Plt Count (140-440) K/mcL MPV (7.4-10.4) fL Gran % (38.0-78.0) % Lymph % (Auto) (15.5-49.0) % [place] % (Auto) (1.0-12.0) % Eos % (Auto) (0.0-7.0) % Baso % (Auto) (0.0-2.0) % Gran # (1.8-8.0) K/mcL Lymph # (Auto) (1.5-4.8) K/mcL [place] # (Auto) (0.1-0.9) K/mcL Eos # (Auto) (0.0-0.7) K/mcL Baso # (Auto) (0.0-0.3) K/mcL VBG Lactic Acid (0.5-2.0) mmol/L POC Sodium (133-145) mmol/L Sodium (133-145) mmol/L POC Potassium (3.3-5.1) mmol/L Potassium (3.3-5.1) mmol/L POC Chloride (96-108) mmol/L Chloride (96-108) mmol/L Carbon Dioxide (22-30) mmol/L POC Total CO2 (22-30) mmol/L Anion Gap (8-16) POC BUN (8-23) mg/dl BUN (8-23) mg/dl Creatinine (0.6-1.1) mg/dl POC Creatinine (0.6-1.1) mg/dl GFR Calculation Glucose (70-105) mg/dL POC Glucose (70-105) mg/dL Calcium (8.6-10.4) mg/dl POC WB Ioniz Calcium (1.16-1.32) mmol/L Magnesium (1.6-2.5) mg/dL Total Bilirubin (0.0-1.0) mg/dL AST (0-37) U/l ALT (0-40) U/l Alkaline Phosphatase (39-117) U/L Total Creatine Kinase 158 (24-170) IU/L Troponin T 0.01 (0-0.03) ng/ml Total Protein (5.9-8.4) gm/dL Albumin (3.2-5.2) gm/dL Globulin (2.2-3.7) gm/dL Albumin/Globulin Ratio (1.0-2.3) Urine Color Yellow Urine Appearance Clear Urine pH 6.0 (5.0-9.0) Ur Specific [place] 1.012 (1.000-1.035) Urine Protein Neg (NEG) mg/dL Urine Glucose (UA) Negative (NEG) mg/dL Urine Ketones Neg (NEG) mg/dL Urine Occult Blood Neg (<0.03) mg/dL Urine Nitrate Neg (NEG) Urine Bilirubin Neg (NEG) mg/dL Urine Urobilinogen Neg (NEG) mg/dL Ur Leukocyte Esterase 75 A (NEG) /uL Urine RBC 2 H (0-1) /hpf Urine WBC 13 H (0-4) /hpf Ur Squamous Epith Cells < 1 (0-4) /hpf Urine Bacteria 0 (0) /hpf Hyaline Casts 9 H (0-2) /lpf Urine Mucus Few (0) /hpf Ur Culture Indicated? Yes - Radiology Data Radiology results reviewed: Yes I reviewed the patient's radiology results. CT scan of the head should no acute pathology - EKG Data EKG attestation: Yes I reviewed and interpreted this EKG. EKG results narrative: EKG shows sinus rhythm with a rate of 76 flattened T waves noted multiple leads except V1 and V2. Long QT Comparison with 02/27/2019-this earlier one has a lot of artifact and T waves are more pronounced Disposition Pt seen by NURSE HEALTHCARE MANAGER/PA only: No Clinical Impression: Hypokalemia, Acute kidney injury Heat exhaustion Qualifiers: Encounter type: initial encounter Qualified Code(s): T67.5XXA - Heat exhaustion, unspecified, initial encounter UTI (urinary tract infection) Qualifiers: Urinary tract infection type: acute cystitis Hematuria presence: with hematuria Qualified Code(s): N30.01 - Acute cystitis with hematuria Summary: Third encounter for heat exhaustion. Work-up ordered. Concern for well-being and decision making Preliminary labs with Chem-8 show hypokalemia so K rider started. Creatinine bumped up to 2.0 up from baseline of 1.0 IV fluids are going I discussed the patient's situation with her. Recommend that she come in for rehydration and electrolyte monitoring. She does have evidence of UTI as well so we will start Bactrim per the antibiotigram I discussed the case with Dr. Rodriguez, our hospitalist, who agreed to accept the patient for further care and monitoring in the hospital Disposition: Xfer As Inpt ([facility]) Condition: Fair Referrals: Va Helton DO [Primary Care Provider] -
[2019-03-20 19:39] LABS: POC Blood Urea Nitrogen 32 mg/dl (8-23); POC CO2 25 mmol/L (22-30); POC Calcium, Ionized 1.13 mmol/L (1.16-1.32); POC Chloride 102 mmol/L (96-108); POC Glucose, Random 86 mg/dL (70-105); POC Sodium 142 mmol/L (133-145)
[2019-03-20 20:02] LABS: Basophils # (Auto) 0.1 K/mcL (0.0-0.3); Basophils % (Auto) 1.1 % (0.0-2.0); Eosinophils # (Auto) 0 K/mcL (0.0-0.7); Eosinophils % (Auto) 0 % (0.0-7.0); Granulocytes % (Auto) 72.2 % (38.0-78.0); Hematocrit 33.4 % (36.0-48.0); Hemoglobin 11.1 g/dL (12.0-15.0); Lymphocytes # (Auto) 0.9 K/mcL (1.5-4.8); Mean Cell Volume 92.1 fL (80.0-100.0); Mean Corpuscular HGB Conc 33.2 g/dL (31.0-36.0); Mean Platelet Volume 8.2 fL (7.4-10.4); Monocytes # (Auto) 0.5 K/mcL (0.1-0.9); Monocytes % (Auto) 9.7 % (1.0-12.0); Platelet Count 280 K/mcL (140-440); RBC 3.63 M/mcL (4.00-5.20); Red Cell Distribution Width 13.4 % (11.5-14.5); WBC 5.4 K/mcL (4.5-11.0)
[2019-03-20] MEDS ORDERED: POTASSIUM CHLORIDE 40 MEQ in DEXTROSE 5% IN WATER 500 ML IV ONE (20:17)
[2019-03-20 20:25] LABS: ALT/SGPT 17 U/l (0-40); AST/SGOT 26 U/l (0-37); Albumin/Globulin Ratio 1.6 (1.0-2.3); Alkaline Phosphatase 54 U/L (39-117); Bilirubin,Total 0.3 mg/dL (0.0-1.0); Blood Urea Nitrogen 33 mg/dl (8-23); Carbon Dioxide 25 mmol/L (22-30); Chloride 100 mmol/L (96-108); Globulin 2.5 gm/dL (2.2-3.7); Glomerular Filtration Rate 27; Glucose 86 mg/dL (70-105)
[2019-03-20] MEDS ORDERED: POTASSIUM CHLORIDE 20 MEQ/10 ML VIAL IV ONE (20:35)
[2019-03-20 21:02] LABS: Appearance,Urine CLEAR; Bacteria,Urine 0 /hpf (0); Bilirubin,Urine NEG (NEG); Color,Urine YELLOW; Culture Indicated,Urine YES; Glucose,Urine (UA) NEGATIVE (NEG); Ketones,Urine NEG (NEG); Leukocyte Esterase,Urine 75 /uL (NEG); Mucus,Urine FEW /hpf (0); Nitrate,Urine NEG (NEG); Protein,Urine NEG (NEG); Specific Gravity,Urine 1.012 (1.000-1.035); Urine Blood NEG mg/dL (<0.03); Urine Hyaline Cast 9 /lpf (0-2); Urine RBC 2 /hpf (0-1); Urine Squamous Epithelial Cell < 1 /hpf (0-4); Urine WBC 13 /hpf (0-4); Urobilinogen,Urine NEG (NEG)
[2019-03-20] MEDS ORDERED: SULFAMETHOXAZOLE/TRIMETHOPRIM 1 TABLET PO ONE (22:15)
--- NOTE | 2019-03-20 22:46 | Internal Med History&Physical ---
Medical - H&P: HPI Patient information: Note initiated : 03/20/19 at 10:42 pm Service Date, if different from initiated Date: [] Patient: Alyson Mortensen a 74 y/o F admitted on for weakness. Chief Complaint: [] History of present illness: Ms. Mortensen is a 74 year old F Who presents the ED after patient was found sitting in her car stopped without AC for approximately 30 minutes so passerby called EMS. History is obtained from chart as patient is unable to account for history. Last thing she remembers is the ambulance arriving. Prior to that she could not give me any specific time that she last remembers. Does report feeling hot and weak and stressed lately. Only medication change she mentions his Lasix in the past month. Work-up in the ER showed acute kidney injury mild hypokalemia. Lactate was okay , urine with leukocyte esterase WBCs and hyaline casts. She has similar episode beginning of the month when [facility] car passed out. At that time she remembers walking out to her car but does not recall anything after that. She is found to be hypothermic at 106 and a mild acute kidney injury. She was admitted overnight with IV IV hydration and responded quite well. Had an echocardiogram which was unremarkable and no arrhythmias. CT brain was unremarkable and again repeat CT brain was unremarkable. Also had an outpatient MRI at that time which showed signal hyperintensities in the bilateral thalami central ramin demonstrating. Pedicular orientation fi ndings were nonspecific with differential including multiple sclerosis osmotic myelinolysis or Wernicke encephalopathy. She does not drink alcohol and I do not see any labs in the past showing profound hyponatremia. Work-up last time did show elevated prolactin level. She is on bupropion. There was no report of urinary incontinence or tongue biting or witnessed seizures. But still in the differential given her history along with medications and brain lesions. She denies any history of syncope or seizures. Does report dark urine and malodorous urine. She does report that she commonly gets lightheaded if she gets up too fast she feels like she could pass out. We do not have orthostatic vital signs at this moment. EKG did show QT prolongation however it was normal on previous EKG of previous episode. She is on several blood pressure medications including amlodipine and lisinopril hydrochlorothiazide and Lasix Patient denies fever chills chest pain shortness of breath nausea vomiting diarrhea. Review of Systems: Pertinent positives as above. Denies headache/fever/chills/n ausea/vomiting/chest or abdominal pain/cough/dyspnea/diarrhea. Many 10 point review of system reviewed negative Medical - H&P: H Medical history: Medical History (Last Reviewed 01/05/19 @ 13:39 by Va Helton DO) Vitamin D deficiency (Chronic) Constipation (Chronic) Closed traumatic displaced Colles' fracture of left radius (Acute) Colles' fracture of right radius (Acute) Unintentional weight loss (Acute) Encounter for wellness examination (Chronic) Severe depression (Chronic) Osteopenia (Chronic) Prediabetes (Chronic 05/12/14) Mitral valve prolapse (Chronic) Hypertension, essential (Chronic 04/27/14) Hyperlipemia (Chronic) Depressive disorder (Chronic) Degenerative disc disease, cervical (Chronic) Colon polyp (Chronic 07/12/14) Chondrocalcinosis of knee (Chronic) Arthritis (Chronic) Anxiety disorder (Chronic) Candidiasis (Inactive) Cellulitis and abscess (Inactive) History of hysterectomy (Inactive) Knee pain (Inactive 04/27/14) Palpitations (Inactive 04/27/14) Spinal stenosis of lumbar region with neurogenic claudication (Inactive 10/20/14) Stomach ulcer (Inactive) Past Surgical History (Last Reviewed 01/05/19 @ 13:39 by Va Helton DO) History of colonoscopy (Inactive 07/02/14) History of laminectomy (Inactive) Family History (Last Reviewed 01/05/19 @ 13:39 by Va Helton DO) Father Family history of arthritis Mother Family history of arthritis Essential hypertension Sister Family history of arthritis Social History (Last Updated 01/05/19 @ 20:44 by Va Helton DO) Quit smoking 15 years ago drinks alcohol rarely lives at home by herself Medical - H&P: Meds Home Medications Medication Instructions Recorded Confirmed Type amlodipine 10 mg tablet 10 mg PO QDAY #90 tab 01/05/19 02/28/19 Rx bupropion HCl XL 150 mg 24 hr 450 mg PO QDAY #270 tab 01/05/19 02/28/19 Rx tablet, extended release furosemide 20 mg tablet 10 mg PO QAM PRN #30 tab 01/05/19 02/28/19 Rx lisinopril 20 1 tab PO QDAY #90 tab 01/05/19 02/28/19 Rx mg-hydrochlorothiazide 25 mg tablet simvastatin 20 mg tablet 20 mg PO QPM #90 tab 01/05/19 02/28/19 Rx venlafaxine ER 150 mg 150 mg PO BID #180 cap 01/05/19 02/28/19 Rx capsule,extended release 24 hr Allergies Allergy/AdvReac Type Severity Reaction Status Date / Time venom-honey bee Allergy Unknown Swelling Verified 01/05/19 13:33 [bee venom (honey bee)] Medical - H&P: Exam - Constitutional Vitals: Temp Pulse Resp BP Pulse Ox 98.9 F 81 13 111/59 100 03/20/19 18:56 03/20/19 21:46 03/20/19 21:46 03/20/19 21:46 03/20/19 21:46 Exam: General: Alert, Awake, No acute Distress, frail-appearing Eyes/N/T: EOMI, PEERL, DMM Head/Neck: neck supple, normocephalic atraumatic CV: RRR, No murmurs, normal s1/s2 Pulm: Clear b/l, no wheezing/rhonchi/rales Abd: soft, nontender, +BS x4 Ext: no clubbing/cyanosis/edema Neuro: Alert, no focal deficits, moves all extremities, CN 2-12 grossly intact, symmetrical strength b/l upper/lower, sensations intact b/l upper/lower Skin: warm/dry Medical - H&P: Reslt - Labs CBC & Chem 7: 03/20/19 19:27 03/20/19 19:27 Labs: Short CBC 03/20/19 Range/Units 19:27 WBC 5.4 (4.5-11.0) K/mcL Hgb 11.1 L (12.0-15.0) g/dL Hct 33.4 L (36.0-48.0) % Plt Count 280 (140-440) K/mcL BMP 03/20/19 19:27 Sodium 138 Potassium 3.2 L Chloride 100 Carbon Dioxide 25 BUN 33 H Creatinine 1.8 H Glucose 86 Calcium 9.0 Cardiac Enzymes 03/20/19 03/20/19 Range/Units 19:27 19:27 Total Creatine Kinase 158 (24-170) IU/L Troponin T 0.01 (0-0.03) ng/ml Liver Function 03/20/19 Range/Units 19:27 Total Bilirubin 0.3 (0.0-1.0) mg/dL AST 26 (0-37) U/l ALT 17 (0-40) U/l Alkaline Phosphatase 54 (39-117) U/L Albumin 4.0 (3.2-5.2) gm/dL Urine 03/20/19 Range/Units 20:00 Urine Color Yellow Urine Appearance Clear Urine pH 6.0 (5.0-9.0) Ur Specific [place] 1.012 (1.000-1.035) Urine Protein Neg (NEG) mg/dL Urine Glucose (UA) Negative (NEG) mg/dL Medical - H&P: A/P - Narrative A/P Narrative: A: *?Syncope: suspect vasovagal vs orthostatic hypotension vs ?seizure less likely. -CT brain negative; recent MRI with nonspecific lesions has not followed up with PCP yet -QTC prolonged on this visit but was not prolonged during previous episode *CHITRA on CKD III: *Volume depletion *Hypokalemia, mild: *UTI: *Depression/anxiety: On bupropion and venlafaxine *HTN/HLD: On Norvasc lisinopril hydrochlorothiazide Lasix P: -IVF -Orthostatic vital signs -monitor on tele and f/u QT -EEG -UDS -hold diuretics, hold lisinopril for CHITRA and decrease norvasc -Stop bupropion given differential seizure -Do not drive until seen by PCP -f/u with PCP/Neurology regarding Brain lesions - - -ppx: Lovenox DNR
[2019-03-20 23:19] LABS: Amphetamine Screen,Urine NONE DETECTED (NONDETECTED); Barbiturate Screen,Urine NONE DETECTED (NONDETECTED); Benzodiazepines Screen,Urine NONE DETECTED (NONDETECTED); Cannabinoid Screen,Urine NONE DETECTED (NONDETECTED); Cocaine Screen,Urine NONE DETECTED (NONDETECTED); Opiate Screen,Urine NONE DETECTED (NONDETECTED); Oxycodone, Urine Screen NONE DETECTED (NONDETECTED); Phencyclidine Screen,Urine NONE DETECTED (NONDETECTED)
[2019-03-20] MEDS ORDERED: POLYETHYLENE GLYCOL 3350 17 GM PACKET PO PRN (23:43)
[2019-03-20] MEDS ORDERED: cefTRIAXone 1 GM VIAL IV SCH (23:43)
[2019-03-20] MEDS ORDERED: ONDANSETRON 4 MG/2 ML VIAL IV PRN (23:43)
[2019-03-20] MEDS ORDERED: POTASSIUM CHLORIDE 20 MEQ TABLET PO PRN ×2 (23:43)
[2019-03-20] MEDS ORDERED: hydrALAZINE 20 MG/ML VIAL IV PRN (23:43)
[2019-03-20] MEDS ORDERED: MAGNESIUM SULFATE 2 GM/50 ML BAG IV PRN (23:43)
[2019-03-20] MEDS ORDERED: SENNOSIDES 1 TABLET PO PRN (23:43)
[2019-03-20] MEDS ORDERED: ACETAMINOPHEN 325 MG TABLET PO PRN (23:43)
[2019-03-20] MEDS ORDERED: POTASSIUM CHLORIDE 40 MEQ in DEXTROSE 5% IN WATER 500 ML IV PRN (23:43)
[2019-03-20] MEDS ORDERED: 0.9 % SODIUM CHLORIDE 1,000 ML IV SCH (23:43)
[2019-03-20] MEDS ORDERED: IPRATROPIUM/ALBUTEROL 3 ML AMPUL.NEB NEB PRN (23:43)
[2019-03-20] MEDS ORDERED: LACTULOSE 20 GM/30 ML ORAL.SOL PO PRN (23:43)
[2019-03-20] MEDS ORDERED: cefTRIAXone 1 GM VIAL ONE (23:50)
[2019-03-21 00:19] LABS: Prolactin 80.2 ng/ml (4.8-23.3); Thyroid Stimulating Hormone 0.72 uIU/ml (0.27-5.01)
[2019-03-21] MEDS: 0.9 % SODIUM CHLORIDE 10 ML SYRINGE IV SCH ×3 (05:42→20:49)
[2019-03-21 05:53] LABS: Basophils # (Auto) 0 K/mcL (0.0-0.3); Basophils % (Auto) 0.6 % (0.0-2.0); Eosinophils # (Auto) 0 K/mcL (0.0-0.7); Eosinophils % (Auto) 0 % (0.0-7.0); Granulocytes % (Auto) 63.9 % (38.0-78.0); Hematocrit 31.2 % (36.0-48.0); Hemoglobin 10.3 g/dL (12.0-15.0); Lymphocytes # (Auto) 1.4 K/mcL (1.5-4.8); Lymphocytes % (Auto) 23.3 % (15.5-49.0); Mean Cell Volume 93.2 fL (80.0-100.0); Mean Corpuscular HGB Conc 33.1 g/dL (31.0-36.0); Mean Platelet Volume 8.7 fL (7.4-10.4); Monocytes # (Auto) 0.8 K/mcL (0.1-0.9); Monocytes % (Auto) 12.2 % (1.0-12.0); Platelet Count 255 K/mcL (140-440); RBC 3.35 M/mcL (4.00-5.20); Red Cell Distribution Width 13.5 % (11.5-14.5); WBC 6.2 K/mcL (4.5-11.0)
[2019-03-21 06:48] LABS: ALT/SGPT 13 U/l (0-40); AST/SGOT 21 U/l (0-37); Albumin 3.4 gm/dL (3.2-5.2); Albumin/Globulin Ratio 1.5 (1.0-2.3); Alkaline Phosphatase 47 U/L (39-117); Bilirubin,Direct < 0.2 mg/dL (0.0-0.3); Bilirubin,Total < 0.2 mg/dL (0.0-1.0); Blood Urea Nitrogen 29 mg/dl (8-23); Calcium 8.7 mg/dl (8.6-10.4); Carbon Dioxide 26 mmol/L (22-30); Chloride 103 mmol/L (96-108); Globulin 2.2 gm/dL (2.2-3.7); Glomerular Filtration Rate 29; Glucose 110 mg/dL (70-105); Lactate Dehydrogenase 189 U/L (94-250); Phosphorous 2.7 mg/dL (2.7-4.5); Triglycerides 48 mg/dl (<150)
[2019-03-21] MEDS ORDERED: MAGNESIUM SULFATE 8.12 MEQ in DEXTROSE 5% IN WATER 50 ML IV ONE (07:35)
--- NOTE | 2019-03-21 07:37 | Internal Med Progress Note ---
Medical - PN: Subj Patient information: Note initiated : 03/21/19 at 7:31 am Service Date, if different from initiated Date: [] Patient: Alyson Mortensen a 74 y/o F admitted on 03/20/19 for weakness. Chief Complaint: [] Interval history: Ms. Mortensen is a 74 year old F Who presents the ED after patient was found sitting in her car stopped without AC for approximately 30 minutes so passerby called EMS. History is obtained from chart as patient is unable to account for history. Last thing she remembers is the ambulance arriving. Prior to that she could not give me any specific time that she last remembers. Does report feeling hot and weak and stressed lately. Only medication change she mentions his Lasix in the past month. Work-up in the ER showed acute kidney injury mild hypokalemia. Lactate was okay, urine with leukocyte esterase WBCs and hyaline casts. She has similar episode beginning of the month when [facility] car passed out. At that time she remembers walking out to her car but does not recall anything after that. She is found to be hypothermic at 106 and a mild acute kidney injury. She was admitted overnight with IV IV hydration and responded quite well. Had an echocardiogram which was unremarkable and no arrhythmias. CT brain was unremarkable and again repeat CT brain was unremarkable. Also had an outpatient MRI at that time which showed signal hyperintensities in the bilateral thalami central ramin demonstrating. Pedicular orientation find ings were nonspecific with differential including multiple sclerosis osmotic myelinolysis or Wernicke encephalopathy. She does not drink alcohol and I do not see any labs in the past showing profound hyponatremia. Work-up last time did show elevated prolactin level. She is on bupropion. There was no report of urinary incontinence or tongue biting or witnessed seizures. But still in the differential given her history along with medications and brain lesions. She denies any history of syncope or seizures. Does report dark urine and malodorous urine. She does report that she commonly gets lightheaded if she gets up too fast she feels like she could pass out. We do not have orthostatic vital signs at this moment. EKG did show QT prolongation however it was normal on previous EKG of previous episode. She is on several blood pressure medications including amlodipine and lisinopril hydrochlorothiazide and Lasix Patient denies fever chills chest pain shortness of breath nausea vomiting diarrhea. 03/21 Feeling little better. Slept well. No new complaints. Seems preoccupied with worrying about her dog at home. No arrhythmia on telemetry Review of Systems: denies headache/fever/chills/nausea/vomiting/chest or abdominal pain/cough/dyspnea/diarrhea. Otherwise see above. - Constitutional Vitals: Vital Signs Temp Pulse Resp BP Pulse Ox 97.7 F 73 20 110/74 98 03/21/19 07:22 03/21/19 04:31 03/21/19 07:22 03/21/19 07:22 03/21/19 07:22 Period Temp Pulse Resp BP Sys/Fitzgerald Pulse Ox Last 24 Hr 97.1 F-98.9 F 67-85 9-20 102-132/44-74 96-100 Intake and Output 03/20/19 03/21/19 03/21/19 21:59 05:59 13:59 Intake Total 2520 Output Total 800 Balance 2520 -800 Weight 44.452 kg 43.545 kg Intake & Output: Intake & Output 03/20/19 03/21/19 03/21/19 21:59 05:59 13:59 Intake Total 2520 Output Total 800 Balance 2520 -800 Weight 44.452 kg 43.545 kg Intake: IV 2520 Sodium Chloride 0.9% 2,000 ml @ 2000 Wide Open IV .Q0M ONE Rx#: [id number] Potassium Chloride 40 Meq In 520 Dextrose 5% in Water 500 ml @ 130 mls/hr IV ONCE ONE Rx#: [id number] Output: Void Amount 800 Exam: General: Alert, Awake, No acute Distress, frail-appearing Eyes/N/T: EOMI, Head/Neck: neck supple, CV: RRR, No murmurs, Pulm: Clear b/l, no wheezing/rhonchi/rales Abd: soft, nontender, +BS x4 Ext: no clubbing/cyanosis/edema Neuro: Alert, no focal deficits, moves all extremities, Skin: warm/dry Medical - PN: Obj Da - Labs CBC & Chem 7: 03/21/19 03:30 03/21/19 03:30 Labs: Abnormal Lab Results 03/21/19 03/21/19 03/20/19 03:30 03:30 20:00 RBC 3.35 L Hgb 10.3 L Hct 31.2 L POC Hct [place] % (Auto) 12.2 H Lymph # (Auto) 1.4 L POC Potassium Potassium POC BUN BUN 29 H Creatinine 1.7 H POC Creatinine Glucose 110 H POC WB Ioniz Calcium Total Protein 5.6 L Prolactin Ur Leukocyte Esterase 75 A Urine RBC 2 H Urine WBC 13 H Hyaline Casts 9 H 03/20/19 03/20/19 03/20/19 19:27 19:27 19:27 RBC 3.63 L Hgb 11.1 L Hct 33.4 L POC Hct 33.0 L [place] % (Auto) Lymph # (Auto) 0.9 L POC Potassium 3.0 L Potassium 3.2 L POC BUN 32 H BUN 33 H Creatinine 1.8 H POC Creatinine 2.0 H Glucose POC WB Ioniz Calcium 1.13 L Total Protein Prolactin 80.2 H Ur Leukocyte Esterase Urine RBC Urine WBC Hyaline Casts Meds: Medications Acetaminophen (Tylenol) 650 mg PO Q6HP PRN PRN Reason: PAIN/FEVER > 101 Albuterol/Ipratropium (Duoneb) 3 ml NEB Q4HP PRN PRN Reason: Shortness Of Breath Amlodipine Besylate (Norvasc) 5 mg PO DAILY [facility] Ceftriaxone Sodium (Rocephin) 1 gm IV DAILY [facility]; Protocol Enoxaparin Sodium (Lovenox) 30 mg SQ DAILY [facility] Hydralazine HCl (Apresoline) 0 mg IV Q2HP PRN PRN Reason: Hypertension Potassium Chloride 40 meq/ (Dextrose) 520 mls @ 130 mls/hr IV UD PRN PRN Reason: Potassium < 3 Magnesium Sulfate (Magnesium Sulfate) 2 gm in 50 mls @ 50 mls/hr IV UD PRN PRN Reason: Magnesium </= 1.6 Sodium Chloride (Sodium Chloride 0.9%) 1,000 mls @ 75 mls/hr IV .[id number] [facility] Stop: 03/21/19 13:02 Last Admin: 03/21/19 00:24 Dose: 75 mls/hr Documented by: Lactulose (Cephulac) 10 gm PO DAILYP PRN PRN Reason: Constipation Ondansetron HCl (Zofran) 4 mg IV Q4HP PRN PRN Reason: Nausea And Vomiting Polyethylene Glycol (Miralax) 17 gm PO DAILYP PRN PRN Reason: Constipation Potassium Chloride (Kdur) 40 meq PO UD PRN PRN Reason: Potassium is 3-3.5 Potassium Chloride (Kdur) 40 meq PO UD PRN PRN Reason: Potassium < 3 Senna (Senokot) 2 tab PO HSP PRN PRN Reason: Constipation Simvastatin (Zocor) 20 mg PO QPM [facility] Sodium Chloride (Saline Flush) 10 ml IV Q8 [facility] Last Admin: 03/21/19 05:42 Dose: Not Given Documented by: Venlafaxine HCl (Effexor Xr) 150 mg PO BID [facility] Medical - PN: A/P - Time Spent With Patient Total time spent is greater than 50% in coordination of care (as documented) at patient's floor/unit and/or counseling patient: - Narrative A/P Narrative: A: *?Syncope: suspect vasovagal vs orthostatic hypotension vs ?seizure less likely. -CT brain negative; recent MRI with nonspecific lesions has not followed up with PCP yet -echo done last admit unremarkable -UDS neg, TSH ok -QTC prolonged in ED but was not prolonged during previous episode; f/u EKG this AM with normal QTc -orthostatic VS ok, but this was after 2L IVF's *CHITRA on CKD III: *Volume depletion *Hypokalemia, mild: resolved *UTI: *Depression/anxiety: On bupropion and venlafaxine *HTN/HLD: On Norvasc lisinopril hydrochlorothiazide Lasix P: -IVF -Orthostatic vital signs -monitor on tele -EEG -rocephin pending UC -hold diuretics, hold lisinopril for CHITRA and decrease norvasc to 5mg for now given h/o peripheral edema -Stop bupropion until r/o seizure, pending EEG -Do not drive until seen by PCP -f/u with PCP/Neurology regarding Brain lesions - -ppx: Lovenox DNR Medical - PN: Qual - VTE Deep Vein Thrombosis/Pulmonary Embolism Present on Admission: No
[2019-03-21] MEDS ORDERED: 0.9 % SODIUM CHLORIDE 1,000 ML IV SCH (07:45)
[2019-03-21] MEDS: amLODIPine 5 MG TABLET PO SCH (09:36)
[2019-03-21] MEDS: ENOXAPARIN 30 MG/0.3 ML SYRINGE SQ SCH (09:36)
[2019-03-21] MEDS: VENLAFAXINE 150 MG CAP.XL.24H PO SCH ×2 (09:51→20:49)
--- NOTE | 2019-03-21 09:58 | Discharge Summary ---
Medical - DS: Prov Patient information: Note initiated : 03/21/19 at 9:55 am Service Date, if different from initiated Date: [] Patient: Alyson Mortensen 74 y/o F admitted on 03/20/19 for weakness. Chief Complaint: [] Date of admission: 03/20/19 22:53 Discharge date: 03/22/19 Primary care physician: Va Helton DO Consults: 03/20/19 Consult to Physician [CONS] Stat Comment: obs Consulting Provider: Wes Rodriguez Reason For Exam: Physician to Consult Medical - DS: Meds - Discharge Medications Prescriptions: amLODIPine [Norvasc] 5 mg PO DAILY #15 tab Cefdinir 300 mg PO BID #6 cap Active and Home Medications: Home Medications amlodipine 10 mg tablet 10 mg PO QDAY #90 tab 01/05/19 [Rx Confirmed 03/20/19 Last Taken Unknown] bupropion HCl XL 150 mg 24 hr tablet, extended release 450 mg PO QDAY #270 tab 01/05/19 [Rx Confirmed 03/20/19 Last Taken Unknown] furosemide 20 mg tablet 10 mg PO QAM PRN #30 tab 01/05/19 [Rx Confirmed 03/20/19 Last Taken Unknown] lisinopril 20 mg-hydrochlorothiazide 25 mg tablet 1 tab PO QDAY #90 tab 01/05/19 [Rx Confirmed 03/20/19 Last Taken Unknown] simvastatin 20 mg tablet 20 mg PO QPM #90 tab 01/05/19 [Rx Confirmed 03/20/19 Last Taken Unknown] venlafaxine ER 150 mg capsule,extended release 24 hr 150 mg PO BID #180 cap 01/05/19 [Rx Confirmed 03/20/19 Last Taken Unknown] Home Medications furosemide 20 mg tablet 10 mg PO QAM PRN #30 tab 01/05/19 [Rx Confirmed 03/20/19 Last Taken Unknown] simvastatin 20 mg tablet 20 mg PO QPM #90 tab 01/05/19 [Rx Confirmed 03/20/19 Last Taken Unknown] venlafaxine ER 150 mg capsule,extended release 24 hr 150 mg PO BID #180 cap 01/05/19 [Rx Confirmed 03/20/19 Last Taken Unknown] Cefdinir 300 mg PO BID #6 cap 03/21/19 [Rx Last Taken Unknown] amLODIPine [Norvasc] 5 mg PO DAILY #15 tab 03/21/19 [Rx Last Taken Unknown] Medical - DS: Hosp Hospital course: Ms. Mortensen is a 74 year old F Who presents the ED after patient was found sitting in her car stopped without AC for approximately 30 minutes so passerby called EMS. History is obtained from chart as patient is unable to account for history. Last thing she remembers is the ambulance arriving. Prior to that she could not give me any specific time that she last remembers. Does report feeling hot and weak and stressed lately. Only medication change she mentions his Lasix in the past month. Work-up in the ER showed acute kidney injury mild hypokalemia. Lactate was okay, urine with leukocyte esterase WBCs and hyaline casts. She has similar episode beginning of the month when [facility] in her car passed out. At that time she remembers walking out to her car but does not recall anything after that. She is found to be hypothermic at 106 and a mild acute kidney injury. She was admitted overnight with IV IV hydration and responded quite well. Had an echocardiogram which was unre markable and no arrhythmias. CT brain was unremarkable and again repeat CT brain was unremarkable. Also had an outpatient MRI at that time which showed signal hyperintensities in the bilateral thalami central ramin demonstrating. Pedicular orientation findings were nonspecific with differential including multiple sclerosis osmotic myelinolysis or Wernicke encephalopathy. She does not drink alcohol and I do not see any labs in the past showing profound hyponatremia. Work-up last time did show elevated prolactin level. She is on bupropion. There was no report of urinary incontinence or tongue biting or witnessed seizures. But still in the differential given her history along with medications and brain lesions. She denies any history of syncope or seizures. Does report dark urine and malodorous urine. She does report that she commonly gets lightheaded if she gets up too fast she feels like she could pass out. We do not have orthostatic vital signs at this moment. EKG did show QT prolongation however it was normal on previous EKG of previous episode. She is on several blood pressure medications including amlodipine and lisinopril hydrochlorothiazide and Lasix Patient denies fever chills chest pain shortness of breath nausea vomiting diarrhea. 03/21 Feeling little better. Slept well. No new complaints. Seems preoccupied with worrying about her dog at home. No arrhythmia on telemetry 03/22 Feeling much better. No new complaints able to remember more of the events that occurred. She states she drove down to [place] to see the physician but could not find it so she started heading back home and when she got to [place] she is stopped to let people across the road when her car diets are going backwards. At that point she does not remember anything until the ambulance arrived and she was found in her friend's driveway in [place] Unable to perform EEG while inpatient given availability of service. Instructed on not driving until she sees her primary care provider I decreased her diuretics and her blood pressure pills A: *?Syncope: suspect vasovagal vs orthostatic hypotension vs ?seizure less likely. -CT brain negative; recent MRI with nonspecific lesions has not followed up with PCP yet -echo done last admit unremarkable -UDS neg, TSH ok -QTC prolonged in ED but was not prolonged during previous episode; f/u EKG this AM with normal QTc -orthostatic VS ok, but this was after 2L IVF's *CHITRA on CKD III: *Volume depletion *Hypokalemia, mild: resolved *UTI: *Depression/anxiety: On bupropion and venlafaxine *HTN/HLD: On Norvasc lisinopril hydrochlorothiazide Lasix P: -rocephin pending UC -hold diuretics, hold lisinopril for CHITRA and decrease norvasc to 5mg for now given h/o peripheral edema -Stop bupropion until r/o seizure, pending EEG -Do not drive until seen by PCP -f/u with PCP/Neurology regarding Brain lesions Discharge diagnosis: Potential syncope versus less likely seizure, renal failure Secondary discharge diagnosis: Volume depletion hypokalemia urinary tract infection depression anxiety hypertension hyperlipidemia - Time Spent with Patient Total time spent providing and/or coordinating discharge services: Greater than 30 minutes Medical - DS: Exam - Constitutional Vitals: Vital Signs Temp Pulse Pulse Resp BP BP Pulse Ox 03/21/19 07:22 97.7 F 20 110/74 98 03/21/19 04:31 98 F 73 14 128/70 96 03/20/19 23:30 97.1 F 68 16 123/63 100 03/20/19 23:00 67 16 132/63 100 03/20/19 21:46 81 13 111/59 100 03/20/19 21:31 72 11 L 116/58 100 03/20/19 21:16 77 18 122/72 99 03/20/19 21:01 78 9 L 120/71 100 03/20/19 20:46 76 17 115/59 100 03/20/19 20:42 74 14 120/56 100 03/20/19 20:16 75 15 118/58 99 03/20/19 20:01 76 12 124/57 100 03/20/19 19:57 83 10 L 126/63 100 03/20/19 19:31 77 119/65 03/20/19 19:28 82 113/61 100 03/20/19 18:56 98.9 F 85 18 102/44 100 Intake and Output 03/20/19 03/21/19 03/21/19 21:59 05:59 13:59 Intake Total 2520 Output Total 800 Balance 2520 -800 Intake: IV 2520 Sodium Chloride 0.9% 2,000 ml @ 2000 Wide Open IV .Q0M ONE Rx#: [id number] Potassium Chloride 40 Meq In 520 Dextrose 5% in Water 500 ml @ 130 mls/hr IV ONCE ONE Rx#: [id number] Output: Void Amount 800 Other: Weight 44.452 kg 43.545 kg Medical - DS: Data Labs on day of discharge: Labs from last 24 hours 03/21/19 03/21/19 03/20/19 03:30 03:30 20:00 WBC 6.2 RBC 3.35 L Hgb 10.3 L Hct 31.2 L POC Hct MCV 93.2 MCH 30.9 MCHC 33.1 RDW 13.5 Plt Count 255 MPV 8.7 Gran % 63.9 Lymph % (Auto) 23.3 Robertson % (Auto) 12.2 H Eos % (Auto) 0 Baso % (Auto) 0.6 Gran # 4.0 Lymph # (Auto) 1.4 L Robertson # (Auto) 0.8 Eos # (Auto) 0 Baso # (Auto) 0 VBG Lactic Acid POC Sodium Sodium 142 POC Potassium Potassium 3.7 POC Chloride Chloride 103 Carbon Dioxide 26 POC Total CO2 Anion Gap 13.0 POC BUN BUN 29 H Creatinine 1.7 H POC Creatinine GFR Calculation 29 Glucose 110 H POC Glucose Uric Acid 8.0 Calcium 8.7 POC WB Ioniz Calcium Phosphorus 2.7 Magnesium 1.7 Total Bilirubin < 0.2 Direct Bilirubin < 0.2 GGT 17 AST 21 ALT 13 Alkaline Phosphatase 47 Lactate Dehydrogenase 189 Total Creatine Kinase Troponin T Total Protein 5.6 L Albumin 3.4 Globulin 2.2 Albumin/Globulin Ratio 1.5 Triglycerides 48 TSH Prolactin Urine Color Urine Appearance Urine pH Ur Specific [place] Urine Protein Urine Glucose (UA) Urine Ketones Urine Occult Blood Urine Nitrate Urine Bilirubin Urine Urobilinogen Ur Leukocyte Esterase Urine RBC Urine WBC Ur Squamous Epith Cells Urine Bacteria Hyaline Casts Urine Mucus Ur Culture Indicated? Urine Opiates Screen None detected Ur Opiates Confirm Not Reportable Ur Oxycodone Screen None detected Urine Methadone Screen None detected Ur Methadone Confirm Not Reportable Ur Barbiturates Screen None detected Ur Barbiturate Confirm Not Reportable Ur Phencyclidine Scrn None detected Urine PCP Confirm Not Reportable Ur Amphetamines Screen None detected U Amphetamines Confirm Not Reportable U Benzodiazepines Scrn None detected U Benzodiazepine Confm Not Reportable Urine Cocaine Screen None detected Urine Cocaine Confirm Not Reportable U Cannabinoids Confirm Not Reportable U Marijuana (THC) Screen None detected 03/20/19 03/20/19 03/20/19 20:00 19:27 19:27 WBC RBC Hgb Hct POC Hct MCV MCH MCHC RDW Plt Count MPV Gran % Lymph % (Auto) Robertson % (Auto) Eos % (Auto) Baso % (Auto) Gran # Lymph # (Auto) Robertson # (Auto) Eos # (Auto) Baso # (Auto) VBG Lactic Acid POC Sodium Sodium POC Potassium Potassium POC Chloride Chloride Carbon Dioxide POC Total CO2 Anion Gap POC BUN BUN Creatinine POC Creatinine GFR Calculation Glucose POC Glucose Uric Acid Calcium POC WB Ioniz Calcium Phosphorus Magnesium Total Bilirubin Direct Bilirubin GGT AST ALT Alkaline Phosphatase Lactate Dehydrogenase Total Creatine Kinase 158 Troponin T Total Protein Albumin Globulin Albumin/Globulin Ratio Triglycerides TSH 0.72 Prolactin 80.2 H Urine Color Yellow Urine Appearance Clear Urine pH 6.0 Ur Specific [place] 1.012 Urine Protein Neg Urine Glucose (UA) Negative Urine Ketones Neg Urine Occult Blood Neg Urine Nitrate Neg Urine Bilirubin Neg Urine Urobilinogen Neg Ur Leukocyte Esterase 75 A Urine RBC 2 H Urine WBC 13 H Ur Squamous Epith Cells < 1 Urine Bacteria 0 Hyaline Casts 9 H Urine Mucus Few Ur Culture Indicated? Yes Urine Opiates Screen Ur Opiates Confirm Ur Oxycodone Screen Urine Methadone Screen Ur Methadone Confirm Ur Barbiturates Screen Ur Barbiturate Confirm Ur Phencyclidine Scrn Urine PCP Confirm Ur Amphetamines Screen U Amphetamines Confirm U Benzodiazepines Scrn U Benzodiazepine Confm Urine Cocaine Screen Urine Cocaine Confirm U Cannabinoids Confirm U Marijuana (THC) Screen 03/20/19 03/20/19 03/20/19 19:27 19:27 19:27 WBC RBC Hgb Hct POC Hct 33.0 L MCV MCH MCHC RDW Plt Count MPV Gran % Lymph % (Auto) Robertson % (Auto) Eos % (Auto) Baso % (Auto) Gran # Lymph # (Auto) Robertson # (Auto) Eos # (Auto) Baso # (Auto) VBG Lactic Acid 0.7 POC Sodium 142 Sodium 138 POC Potassium 3.0 L Potassium 3.2 L POC Chloride 102 Chloride 100 Carbon Dioxide 25 POC Total CO2 25 Anion Gap 13.0 POC BUN 32 H BUN 33 H Creatinine 1.8 H POC Creatinine 2.0 H GFR Calculation 27 Glucose 86 POC Glucose 86 Uric Acid Calcium 9.0 POC WB Ioniz Calcium 1.13 L Phosphorus Magnesium 1.9 Total Bilirubin 0.3 Direct Bilirubin GGT AST 26 ALT 17 Alkaline Phosphatase 54 Lactate Dehydrogenase Total Creatine Kinase Troponin T 0.01 Total Protein 6.5 Albumin 4.0 Globulin 2.5 Albumin/Globulin Ratio 1.6 Triglycerides TSH Prolactin Urine Color Urine Appearance Urine pH Ur Specific [place] Urine Protein Urine Glucose (UA) Urine Ketones Urine Occult Blood Urine Nitrate Urine Bilirubin Urine Urobilinogen Ur Leukocyte Esterase Urine RBC Urine WBC Ur Squamous Epith Cells Urine Bacteria Hyaline Casts Urine Mucus Ur Culture Indicated? Urine Opiates Screen Ur Opiates Confirm Ur Oxycodone Screen Urine Methadone Screen Ur Methadone Confirm Ur Barbiturates Screen Ur Barbiturate Confirm Ur Phencyclidine Scrn Urine PCP Confirm Ur Amphetamines Screen U Amphetamines Confirm U Benzodiazepines Scrn U Benzodiazepine Confm Urine Cocaine Screen Urine Cocaine Confirm U Cannabinoids Confirm U Marijuana (THC) Screen 03/20/19 19:27 WBC 5.4 RBC 3.63 L Hgb 11.1 L Hct 33.4 L POC Hct MCV 92.1 MCH 30.6 MCHC 33.2 RDW 13.4 Plt Count 280 MPV 8.2 Gran % 72.2 Lymph % (Auto) 17.0 Robertson % (Auto) 9.7 Eos % (Auto) 0 Baso % (Auto) 1.1 Gran # 3.9 Lymph # (Auto) 0.9 L Robertson # (Auto) 0.5 Eos # (Auto) 0 Baso # (Auto) 0.1 VBG Lactic Acid POC Sodium Sodium POC Potassium Potassium POC Chloride Chloride Carbon Dioxide POC Total CO2 Anion Gap POC BUN BUN Creatinine POC Creatinine GFR Calculation Glucose POC Glucose Uric Acid Calcium POC WB Ioniz Calcium Phosphorus Magnesium Total Bilirubin Direct Bilirubin GGT AST ALT Alkaline Phosphatase Lactate Dehydrogenase Total Creatine Kinase Troponin T Total Protein Albumin Globulin Albumin/Globulin Ratio Triglycerides TSH Prolactin Urine Color Urine Appearance Urine pH Ur Specific [place] Urine Protein Urine Glucose (UA) Urine Ketones Urine Occult Blood Urine Nitrate Urine Bilirubin Urine Urobilinogen Ur Leukocyte Esterase Urine RBC Urine WBC Ur Squamous Epith Cells Urine Bacteria Hyaline Casts Urine Mucus Ur Culture Indicated? Urine Opiates Screen Ur Opiates Confirm Ur Oxycodone Screen Urine Methadone Screen Ur Methadone Confirm Ur Barbiturates Screen Ur Barbiturate Confirm Ur Phencyclidine Scrn Urine PCP Confirm Ur Amphetamines Screen U Amphetamines Confirm U Benzodiazepines Scrn U Benzodiazepine Confm Urine Cocaine Screen Urine Cocaine Confirm U Cannabinoids Confirm U Marijuana (THC) Screen Medical - DS: A/P - Patient/Caregiver Discharge Instructions Activity: increase activity as tolerated Diet: Regular Diet Additional Instructions: Referral to see neurologist 5 to 10 days for abnormal MRI Do not drive a vehicle until seen by primary care provider Prescriptions: amLODIPine [Norvasc] 5 mg PO DAILY #15 tab Cefdinir 300 mg PO BID #6 cap - Follow up Plan Follow up with: Va Helton DO [Primary Care Provider] - Disposition: Home, Self-Care Prognosis: Fair Rehab Potential: Fair Overall status at discharge: patient is back to baseline Medical - DS: Qual - VTE Deep Vein Thrombosis/Pulmonary Embolism Present on Admission: No
[2019-03-21] MEDS: cefTRIAXone 1 GM VIAL IV SCH (15:32)
--- NOTE | 2019-03-21 18:12 | Cat Scan Report ---
History: Syncope and weakness TECHNIQUE: The brain was imaged without contrast at 2.5 mm intervals. The radiation exposure was limited using dose reduction technology. FINDINGS: There are age-related degenerative changes with mild generalized cerebral atrophy and patchy areas of decreased attenuation in the white matter in the howard radiata and centrum semiovale. No acute infarct is detected. There is no hemorrhage or mass effect. The ventricles are normal in size. There is no abnormal extra-axial fluid collection. The bone windows show no skull fracture and the visualized sinuses are clear. There has been no significant change since 02/27/19. IMPRESSION: Normal exam for patient's age, with no acute abnormality Interpreted and Authenticated by: Joe Bhat 03/21/19
[2019-03-21] MEDS ORDERED: SIMVASTATIN 20 MG TABLET PO SCH (21:00)
[2019-03-22] MEDS: 0.9 % SODIUM CHLORIDE 10 ML SYRINGE IV SCH (06:01)
[2019-03-22 08:13] LABS: ALT/SGPT 12 U/l (0-40); AST/SGOT 19 U/l (0-37); Albumin 3.4 gm/dL (3.2-5.2); Albumin/Globulin Ratio 1.5 (1.0-2.3); Alkaline Phosphatase 57 U/L (39-117); Bilirubin,Direct < 0.2 mg/dL (0.0-0.3); Bilirubin,Total < 0.2 mg/dL (0.0-1.0); Blood Urea Nitrogen 24 mg/dl (8-23); Calcium 8.7 mg/dl (8.6-10.4); Carbon Dioxide 25 mmol/L (22-30); Chloride 104 mmol/L (96-108); Globulin 2.3 gm/dL (2.2-3.7); Glomerular Filtration Rate 49; Glucose 77 mg/dL (70-105); Lactate Dehydrogenase 200 U/L (94-250); Phosphorous 2.3 mg/dL (2.7-4.5); Triglycerides 59 mg/dl (<150); Uric Acid 5.5 mg/dL (2.5-8.0)
[2019-03-22] MEDS: VENLAFAXINE 150 MG CAP.XL.24H PO SCH (08:52)
[2019-03-22] MEDS: amLODIPine 5 MG TABLET PO SCH (08:52)
[2019-03-22] MEDS: cefTRIAXone 1 GM VIAL IV SCH (08:53)
[2019-03-22] MEDS: ENOXAPARIN 30 MG/0.3 ML SYRINGE SQ SCH (08:53)
== END 2019-03-22 11:55 | disposition home or self-care (01) ==
LOC: ICU 18:54 → ED 18:54 → ICU 23:00
PROVIDERS: ADMIT Internal Medicine; ATTEND Internal Medicine